=== PATIENT | male | born 1995 | race African-American/Black ===

== ENCOUNTER 2022-02-03 10:07 | Emergency (ER) | payer OTHER ==
[~2022-02-03] VITALS: Ht 180.3 cm; Wt 117.3 kg
[2022-02-03 10:21] VITALS: TEMP 98.1
[2022-02-03] MEDS ORDERED: CEPHALEXIN500 M1 PO (11:34)
[2022-02-03 11:48] VITALS: BP 117/81; PULSE 59
== END 2022-02-03 11:48 | disposition home or self-care (01) ==
LOC: COL.ER 10:07
DX: S60.032A Contusion of left middle finger without damage to nail, initial encounter (principal); W23.0XXA Caught, crushed, jammed, or pinched between moving objects, initial encounter

== ENCOUNTER 2022-02-13 13:01 | Emergency (ER) | payer OTHER ==
[~2022-02-13] VITALS: Ht 182.9 cm; Wt 113.6 kg
[~2022-02-13 13:01] MED LIST: CEPHALEXIN500 M1 PO
[2022-02-13 13:04] VITALS: TEMP 98.3
[2022-02-13 14:10] VITALS: BP 150/95; PULSE 74
== END 2022-02-13 14:10 | disposition home or self-care (01) ==
LOC: COL.ER 13:01
DX: T70.0XXA Otitic barotrauma, initial encounter (principal); S20.314A Abrasion of middle front wall of thorax, initial encounter; S40.812A Abrasion of left upper arm, initial encounter; S40.811A Abrasion of right upper arm, initial encounter; W37.8XXA Explosion and rupture of other pressurized tire, pipe or hose, initial encounter